=== PATIENT | male | born 1995 | race Caucasian/White ===

== ENCOUNTER 2018-12-25 15:42 | Emergency (ER) | payer OTHER ==
[~2018-12-25] VITALS: Ht 170.2 cm; Wt 56.2 kg
[2018-12-25 15:50] VITALS: Ht 170.2 cm; Wt 56.2 kg
[2018-12-25] MEDS ORDERED: KETOROLAC 30 MG INJ IM STA (16:54)
[2018-12-25] MEDS ORDERED: IBUP-1542 PO (17:09)
[2018-12-25] MEDS ORDERED: TRAM50TA2 PO (17:09)
--- NOTE | 2018-12-25 17:12 | ERD ---
ER Documentation Chief Complaint Chief Complaint rt ankle pain , twisted yesterday while palying basketball HPI 23-year-old male with no reported past medical surgical history presents with complaint of right ankle pain after sustaining injury yesterday. States he was playing basketball last night when he sustained a right ankle injury. Since that time he noticed swelling to the lateral aspect of his right ankle as well as pain to the foot. He otherwise denies any other injuries, lower extremity weakness or numbness. Has been able to put weight on his right foot but with reported pain. He has not taken any medications for his pain. He otherwise without complaint. ROS All systems reviewed and are negative except as per history of present illness. Medications Home Meds Active Scripts Ibuprofen* (Motrin*) 600 Mg Tab, 600 MG PO Q6, #30 TAB Prov:RUBEN HERMAN PA-C 12/25/18 Tramadol HCl (Tramadol HCl) 50 Mg Tablet, 50 MG PO Q4 PRN for PAIN, #20 TAB Prov:RUBEN HERMAN PA-C 12/25/18 Allergies Allergies: Coded Allergies: mushroom (Verified Allergy, Unknown, sweating,vomiting, 12/25/18) pineapple (Verified Allergy, Unknown, lip swelling, 12/25/18) PMhx/Soc Medical and Surgical Hx: pt denies Medical Hx, pt denies Surgical Hx Hx Alcohol Use: No Hx Substance Use: Yes (marijuana) Hx Tobacco Use: No Smoking Status: Never smoker FmHx Family History: No diabetes, No coronary disease, No other Physical Exam Vitals Vital Signs Date Temp Pulse Resp B/P (MAP) Pulse Ox O2 O2 Flow FiO2 Time Delivery Rate 12/25/18 97.5 60 18 151/83 99 15:50 (105) Physical Exam I have reviewed the triage vital signs. Const: Well nourished, well developed, appears stated age Eyes: PERRL, no conjunctival injection HENT: NCAT, Neck supple without meningismus CV: RRR, Warm, well-perfused extremities RESP: CTAB, Unlabored respiratory effort GI: soft, non-tender, non-distended, no masses MSK: R ankle pain at posterior edge or tip of lateral malleolus. No pain at posterior edge or tip of medial malleolus. No pain at fibular head, No proximal tib-fib pain. No pain at base of the 5th of metatarsal, No pain at navicular bone. Sensation intact to light touch. Cap refill < 2 seconds. Skin: Warm, dry. No rashes Neuro: grossly non focal Psych: Appropriate mood and affect. Results 24 hrs Current Medications Medications Dose Sig/Ever Start Time Status Last (Trade) Ordered Route PRN Stop Time Admin Dose Reason Admin Ketorolac 30 mg ONCE STAT 12/25/18 DC 12/25/18 Tromethamine IM 16:54 17:02 (Toradol) 12/25/18 16:55 Procedures/MDM 23-year-old male presents with right ankle pain after sustaining injury. ED course: X-ray of right foot and ankle without acute fracture or dislocation Will discharge with crutches as well as Román wrap Discharge with crutches, román wrap and pt instructed to follow up with PMD or ortho/sports medicine for further management. Discussed strict return precautions for neurovascular insufficiency. DISPOSITION PLAN: We discussed follow up with the patient's primary care doctor within 24 to 48 hours. Patient counseled regarding my diagnostic impression and care plan. Prior to discharge all questions answered. Pt agrees with treatment plan and understands strict return precautions. Precautionary instructions provided including instructions to return to the ER if not improving or for any worsening or changing symptoms or concerns. Disclaimer: Inadvertent spelling and grammatical errors are likely due to EHR/dictation software use and do not reflect on the overall quality of patient care. Also, please note that the electronic time recorded on this note does not necessarily reflect the actual time of the patient encounter. Departure Diagnosis: Primary Impression: Ankle injury Condition: Stable Patient Instructions: Treating Ankle Sprains Additional Instructions: Call your primary care doctor TOMORROW for an appointment during the next 2-3 days.See the doctor sooner or return here if your condition worsens before your appointment time. RUBEN HERMAN PA-C Dec 25, 2018 17:12
[2018-12-25 19:29] VITALS: BP 119/81; PULSE 61; RESP 16
== END 2018-12-25 19:37 | disposition home or self-care (01) ==
LOC: FTE 15:42
DX: S99.911A Unspecified injury of right ankle, initial encounter (principal); X58.XXXA Exposure to other specified factors, initial encounter; Y92.310 Basketball court as the place of occurrence of the external cause
CPT/HCPCS: 73610; 73630; 96372; J1885; Z7502